=== PATIENT | female | born 1990 | race Caucasian/White ===

== ENCOUNTER 2023-05-09 11:29 | Emergency (ER) | payer OTHER ==
[2023-05-09 11:57] VITALS: BP 125/83; PULSE 77; RESP 16; TEMP 98; BMI 20.9
[2023-05-09 12:45] LABS: HEMATOCRIT 40.1 % (32.4-45.2); HEMOGLOBIN 13.5 G/dL (10.7-15.3); MCH 29.2 pg (25.7-33.7); MCHC 33.6 g/dl (32.0-36.0); PLATELET COUNT 269.3 10^3/uL (134-434); RBC 4.61 10^6/uL (3.60-5.2); RDW 13.9 % (11.6-15.6); WHITE BLOOD COUNT 7.4 10^3/uL (4.0-10.8)
[2023-05-09 12:52] LABS: HCG,QUALITATIVE URINE Positive
[2023-05-09 13:04] LABS: ALBUMIN 4.4 g/dl (3.4-5.0); BILIRUBIN,TOTAL 1.6 mg/dl (0.2-1); CALCIUM 9.3 mg/dl (8.5-10.1); CREATININE 0.7 mg/dl (0.6-1.3); POTASSIUM 3.9 mmol/L (3.5-5.1); TOT PROT 6.4 g/dl (6.4-8.2)
[2023-05-09 13:07] LABS: EPITHELIAL CELLS 0-5 /hpf
== END 2023-05-09 16:09 | disposition home or self-care (01) ==
LOC: FER 11:29
DX: O46.91 Antepartum hemorrhage, unspecified, first trimester (principal); Z3A.01 Less than 8 weeks gestation of pregnancy
CPT/HCPCS: 36415; 76830-TC; 80053; 81003; 81015; 84702; 84703; 85027; 86850; 86900; 86901; 87086; 99284-25

== ENCOUNTER 2023-05-16 17:38 | Emergency (ER) | payer OTHER ==
[2023-05-16 18:23] VITALS: BP 135/74; PULSE 88; RESP 16; TEMP 98.3; BMI 20.1
== END 2023-05-16 18:35 | disposition home or self-care (01) ==
LOC: FER 17:38
DX: O20.0 Threatened abortion (principal); Z3A.01 Less than 8 weeks gestation of pregnancy
CPT/HCPCS: 99283-25

== ENCOUNTER 2023-12-20 08:00 | Inpatient (IN) | payer BC ==
[2023-12-20 09:05] LABS: BASO % 0.4 % (0-2.0); HEMATOCRIT 35.8 % (32.4-45.2); HEMOGLOBIN 12.6 GM/dL (10.7-15.3); LYMPH % 23.1 % (8-40); MCH 30.2 pg (25.7-33.7); MCHC 35.3 g/dl (32.0-36.0); MEAN CELL VOLUME 85.5 fl (80-96); MEAN PLT VOLUME 9.3 fl (7.5-11.1); NEUT % 70.5 % (42.8-82.8); PLATELET COUNT 189 10^3/uL (134-434); RBC 4.18 M/mm3 (3.60-5.2); RDW 13.2 % (11.6-15.6); WHITE BLOOD COUNT 8.3 K/mm3 (4.0-10.0)
[2023-12-20 09:10] LABS: INR 0.89 (0.83-1.09); PROTHROMBIN TIME (PATIENT) 10.3 SEC (9.7-13.0)
[2023-12-20 09:13] LABS: ACTIVATED PTT 27.2 SECONDS (25.2-36.5)
[2023-12-20 09:24] LABS: CHLORIDE 110 mmol/L (98-107); POTASSIUM 3.5 mmol/L (3.5-5.1); SODIUM 138 mmol/L (136-145)
[2023-12-20 09:25] LABS: ANION GAP 8 mmol/L (4-13); BLOOD UREA NITROGEN 9.3 mg/dL (7-18); CALCIUM 8.6 mg/dL (8.5-10.1); CO2 20 mmol/L (21-32); GLUCOSE,RANDOM 130 mg/dL (74-106)
[2023-12-20 09:28] LABS: CREATININE 0.6 mg/dL (0.55-1.3)
[2023-12-20] MEDS: LACTATED RINGERS SOLUTION 1,000 ML/1,000 ML INFUS.BAG IV SCH (09:45)
[2023-12-20 10:17] VITALS: BMI 26.3
[2023-12-20] MEDS: MISOPROSTOL 25 MCG TABLET (COMPOUNDED BY PHARMACY) PV ONE (11:00)
[2023-12-20] MEDS: MISOPROSTOL 25 MCG TABLET (COMPOUNDED BY PHARMACY) BUC ONE (11:07)
[2023-12-20 14:34] LABS: HIV INTERPRETATION NEGATIVE (NEGATIVE)
[2023-12-20] MEDS ORDERED: OXYTOCIN 30 UNITS in 0.9% NS 30 UNIT/500 ML INFUS.BAG IVPB ONE (16:09)
[2023-12-20] MEDS: OXYTOCIN 30 UNITS in 0.9% NS 30 UNIT/500 ML INFUS.BAG IVPB SCH (16:20)
[2023-12-21] MEDS ORDERED: FENTANYL/BUPIVACAINE/NS/PF - PCEA - 50 ML DISP.SYRIN EP ONE (08:59)
[2023-12-21] MEDS: FENTANYL/BUPIVACAINE/NS/PF - PCEA - 50 ML DISP.SYRIN EP SCH (09:20)
[2023-12-21] MEDS ORDERED: NALOXONE HCL 0.4 MG/ML VIAL IVPUSH PRN (09:48)
[2023-12-21] MEDS ORDERED: LIDOCAINE HCL 1% PRESERVATIVE FREE - 30ML VIAL ONE (10:15)
[2023-12-21] MEDS ORDERED: OXYTOCIN 20 UNITS in 0.9% NS 20 UNIT/1,000 ML INFUS.BAG IV ONE (10:15)
[2023-12-21] MEDS ORDERED: MISOPROSTOL 200 MCG TABLET ONE (11:31)
[2023-12-21] MEDS: MISOPROSTOL 200 MCG TABLET PR ONE (13:20)
[2023-12-21] MEDS ORDERED: METHYLERGONOVINE MALEATE 0.2 MG/1 ML AMP IM PRN (14:27)
[2023-12-21] MEDS ORDERED: BISACODYL 10 MG SUPP.RECT RC PRN (14:27)
[2023-12-21] MEDS ORDERED: ACETAMINOPHEN 325 MG TABLET (FP) PO PRN (14:27)
[2023-12-21] MEDS ORDERED: BENZOCAINE 20% 57 GM BOTTLE TP PRN (14:27)
[2023-12-21] MEDS ORDERED: BENZOCAINE 28 GM HEMORRHOIDAL OINTMENT TP PRN (14:27)
[2023-12-21] MEDS ORDERED: WITCH HAZEL 50% (TUCKS) 40 PAD/JAR PAD TP PRN (14:27)
[2023-12-21] MEDS: OXYTOCIN 20 UNITS in 0.9% NS 20 UNIT/1,000 ML INFUS.BAG IV SCH (15:30)
[2023-12-21] MEDS: BUTORPHANOL TARTRATE 2 MG/ML VIAL IVPB ONE (19:46)
[2023-12-21] MEDS: PROMETHAZINE HCL 25 MG TABLET PO ONE (19:46)
[2023-12-22 06:18] LABS: BASO % 0.3 % (0-2.0); EOS % 0.7 % (0-4.5); HEMATOCRIT 34.8 % (32.4-45.2); HEMOGLOBIN 12.1 GM/dL (10.7-15.3); LYMPH % 17.6 % (8-40); MCH 30.1 pg (25.7-33.7); MCHC 34.8 g/dl (32.0-36.0); MEAN CELL VOLUME 86.5 fl (80-96); MEAN PLT VOLUME 9.9 fl (7.5-11.1); MONO % 6.4 % (3.8-10.2); PLATELET COUNT 175 10^3/uL (134-434); RBC 4.02 M/mm3 (3.60-5.2); RDW 12.9 % (11.6-15.6); WHITE BLOOD COUNT 12.2 K/mm3 (4.0-10.0)
[2023-12-22] MEDS: IBUPROFEN 600 MG TABLET (FP) PO PRN (08:12)
[2023-12-22] MEDS: PRENATAL VITAMINS W/ FOLIC ACID TABLET (FP) PO SCH (13:15)
[2023-12-22 21:23] VITALS: RESP 18
[2023-12-22] MEDS ORDERED: SENNOSIDES/DOCUSATE COMBO (SENNA PLUS) TABLET (UD) PO PRN (22:00)
[2023-12-23 11:27] VITALS: BP 125/75; PULSE 55; TEMP 98.7
== END 2023-12-23 15:00 | disposition home or self-care (01) | DRG 807 ==
LOC: JLDR 08:00 → J3W 12-21 15:35
PROVIDERS: ADMIT Obstetrics & Gynecology; ATTEND Obstetrics & Gynecology
PROC: 10E0XZZ Delivery of Products of Conception, External Approach (ICD-10-PCS; principal; 2023-12-21)
PROC: 0HQ9XZZ Repair Perineum Skin, External Approach (ICD-10-PCS; 2023-12-21)
PROC: 0W8NXZZ Division of Female Perineum, External Approach (ICD-10-PCS; 2023-12-21)
DX: O36.5930 Maternal care for other known or suspected poor fetal growth, third trimester, not applicable or unspecified (principal); O70.0 First degree perineal laceration during delivery; Z3A.38 38 weeks gestation of pregnancy; Z37.0 Single live birth
CPT/HCPCS: 36415; 59409; 80048; 85025; 85610; 85730; 86780; 86850; 86900; 86901; 87389